=== PATIENT | male | born 1940 | race Caucasian/White ===

== ENCOUNTER 2020-08-22 18:23 | Observation (INO) | payer MEDICARE, BC ==
[~2020-08-22] VITALS: Ht 180.3 cm; Wt 93.5 kg
[~2020-08-22 18:23] MED LIST: ACET500 PO; ALBU3IS INH; ALBU90OI INH; ALLEGRA ALLERG180 MG PO; ALLERCLEAR10 MG PO; ALLO100 PO; ALPR.25 PO; ALPR.5; ALPR.5 PO; AMLO5 PO; AMOX500 PO; ASPI81CH PO; ASPI81EC; ASPI81EC PO; ATOR40TA; ATOR80 PO; AZEL137S NS; Allopurinol100 MG PO; Aspir 8181 MG PO; BENZ100A PO; BUDE6HFA INH; CENTRUM SILVER1 EAC2 PO; CHOL10002 PO; CIPR500 PO; CITA20 PO; CLARISPRAY9.9 M1; CO Q10100 MG PO; COQ1050 MG PO; Crestor40 MG PO; Cyclobenzaprine5 MG PO; DIAZ5 PO; ESOM20; FENO160 PO; FISH1000 PO; FLUT.05NI; GABA100 PO; GABA300 PO; HYDACE5 PO; HYDACE5325 PO; HYDCHL12.5 PO; IRBHYD300 PO; KETO10 PO; LEVO750 PO; LORPSEER12 PO; LOSA50 PO; LOSARTAN-HCTZ1 EAC6 PO; LOSHYD; LOSHYD PO; LOSHYD100; Lofibra160 MG PO; MAGCHL64ER PO; MAGNESIUM OXID500 MG PO; METO100 PO; METO100ER; METO100ER PO; METO25ER PO; METO50ER; METR500 PO; MONT10T PO; MULVITA PO; MULVITMIND PO; MULVITMINF; MULVITMINF PO; Micro-K10 MEQ PO; Mobic7.5 MG PO; NAPR500 PO; NASACORT10.8 ML; NIAC500ER; NITR.4SL SL; NITR.6SL SL; Nitrostat0.4 MG PO; OMEP20ER PO; OMEP40CA12 PO; OMEPRAZOLE MAGN20 MG PO; OXYACE5T PO; OXYACE7.5T PO; OXYC10TA19 PO; OXYC15ER PO; OXYC5 PO; PARO20; POLY500; POTA10T PO; POTCHL10ER PO; POTCHL20ER PO; POTCIT10; POTCIT10 PO; PRED20 PO; PROM25 PO; Percocet 5-3251 EACH PO; RANI150 PO; ROSU10TA; ROSU10TA PO; SPACER IH; SYMBICORT 160-4.6 GM INH; SYMBICORT INH; TAMS.4ER PO; TESTERONE; TESTOSTER; TESTOSTERONE; TESTOSTERONE CREAM; TRIAOIA; Testostero100 MG/1 M; UBID100 PO; VITAMIN D31000 UNI1 PO; Ventolin/Prove6.7 GM INH; Vesicare10 MG PO; Vibramycin100 MG PO; Vitamin D2000 UNIT PO; [UNRECOGNIZED DRUG - OTHER] PO
[2020-08-22 18:52] LABS: BASOPHILS ABSOLUTE AUTO 0.05 K/mm3 (0.00-0.23); BASOPHILS PERCENT AUTO 1 % (0-2); EOSINOPHILS ABSOLUTE AUTO 0.21 K/mm3 (0.00-0.68); EOSINOPHILS PERCENT AUTO 2 % (0-6); Hemoglobin 15.3 g/dL (13.5-17.5); IMMATURE GRAN ABSOLUTE AUTO 0.02 K/mm3 (0.00-0.10); IMMATURE GRAN PERCENT AUTO 0 % (0-1); LYMPHOCYTES PERCENT AUTO 19 % (21-46); MONOCYTES ABSOLUTE AUTO 0.75 K/mm3 (0.16-1.47); MONOCYTES PERCENT AUTO 8 % (4-13); Mean Corpuscular HGB 28.8 pg (26.0-34.0); Mean Corpuscular HGB Conc 33.3 g/dL (31.5-36.5); Mean Corpuscular Volume 87 fL (80-100); Mean Platelet Volume 10.4 fL (9.1-12.4); NEUTROPHILS PERCENT AUTO 70 % (41-73); Platelet Count 221 K/mm3 (150-400); RDW Coefficient Variation 14.9 % (11.7-14.2); RDW Standard Deviation 47.1 fL (35.1-46.3); Red Blood Cell Count 5.31 M/mm3 (4.30-5.90); White Blood Cell Count 9.33 K/mm3 (4.00-11.30)
[2020-08-22 19:12] LABS: Alanine Aminotransfer (ALT/SGP 39 U/L (12-78); Albumin, Blood 3.9 g/dL (3.4-5.0); Albumin/Globulin Ratio 1.1 (0.8-1.8); Alk Phos 67 U/L (50-136); Anion Gap 8 mmol/L (6-16); Aspartate Aminotrans (AST/SGOT 30 U/L (12-37); Bilirubin, Total 0.6 mg/dL (0.1-1.0); Blood Urea Nitrogen 28 mg/dL (8-24); Bun/Creatinine Ratio 25.9 (12.0-20.0); CO2, Blood 24 mmol/L (21-32); Calcium, Blood 9.1 mg/dL (8.5-10.1); Chloride, Blood 107 mmol/L (98-108); Creatinine, Blood 1.08 mg/dL (0.60-1.20); Globulin, Blood 3.5 g/dL (2.2-4.0); Glomerular Filtration Rate >60 (60-); Glucose, Blood 113 mg/dL (70-99); Potassium, Blood 3.7 mmol/L (3.5-5.5); Sodium, Blood 139 mmol/L (136-145); Total Protein, Blood 7.4 g/dL (6.4-8.2); Troponin I <0.015 ng/mL (0.000-0.040)
--- NOTE | 2020-08-23 18:39 | NUR ---
ADMIT: 08/22/21 DISCHARGE: DX: dizzy CC: [email or web address] ADMIT:01/08/20 DISCHARGE: 01/11/20 DX:Transient ischemic attack CC: YOAV CALL: Did not meet prior to discharge RESIDENCE: Home CAREGIVER: Nicolas Spence [phone], Child, Nicolas Spence [phone], Child, DX: COPD, CAD, Chronic Kidney disase, see list DME: oxygen for AIDE, no cpap CCM: No record HOME HEALTH: No record Summary: 08/22/19 obs 08/23/[address] Hare ETA discharge Sunday post stress test and angiogram if needed. Will meet [facility] Sunday to discuss discharge planning. cp Cardiolite stress test would be the next appropriate step for his evaluation. Troponin neg x2. Although the patient would like to proceed with an angiogram instead, he did agree to a stress test tomorrow morning. If there is an abnormality he will then get an angiogram and if it is normal he will follow-up with Debra Alvarado as scheduled next [id number] without symptoms.
--- NOTE | 2020-08-23 18:49 | NUR ---
08/23/[address] Julio, patient quite and agreeable. She is addressing his continued need of restrainsts, Discussed his baseline mentation fluctuated, most phillip very slow to answer questions, or does not recognize where he is, other times recongnizes family. Was mostly bedbound since he was admitted, not wanting to work with PT OT. Last week started getting up out of bed, not directable. Still waiting for Medicaid approval for placement. Was reviewed by Harpal Jernigan. I will follow up with Kayli Hernández to identify if received chart notes and date finacials are expected to be completed. cp
--- NOTE | 2020-08-23 19:06 | NUR ---
SHIFT SUMMARY PT ARRIVED FROM ER AROUND 1030AM. HAD ECHO UPON ARRIVAL, GIRLFRIEND AT BEDSIDE. INDEP IN ROOM, CONTINENT. 3L OXYGEN PRN FOR WHEN HE SLEEPS, THIS IS HIS HOME REGIMEN FOR HIS CPAP, HE DECLINES CPAP. TELE SHOWING NSR WITH FIRST DEGREE BLOCK AND BBB, DR MILLS SHOWN THE STRIP THAT WAS FAXED OVER. TO HAVE STRESS TEST TOMORROW, NPO FOUR HOURS PRIOR. CALL LIGHT IN REACH, GIVING REPORT TO NIGHT NURSE
--- NOTE | 2020-08-24 00:07 | NUR ---
08/24/20 0005 PT AWAKENED FOR VITALS AND REMINDED HIM OF BEING NPO EXCEPT FOR WATER AND MEDS. DENIES ANY S/S OR DISCOMFORT. INFORMATION TECHNOLOGY AUDIT MANAGER NOTICED SOME MILD QRS CHANGES ABOUT 2325. WILL CONTINUE TO MONITOR.
--- NOTE | 2020-08-24 04:48 | NUR ---
08/24/20 0440 LAB WOKE PT FOR LABWORK. DENIES ANY S/S OR DISCOMFORT. UP TO THE BR FOR VOIDINGS. ONLY ON SIPS OF WATER AND MEDS SINCE MIDNIGHT. HEART MONITOR STABLE AT SR AT 70 WITH BBB "ON AND OFF" PER GEOGRAPHY DEPARTMENT CHAIR. ALEXANDRA.
[2020-08-24 05:08] LABS: BASOPHILS ABSOLUTE AUTO 0.04 K/mm3 (0.00-0.23); BASOPHILS PERCENT AUTO 1 % (0-2); EOSINOPHILS ABSOLUTE AUTO 0.21 K/mm3 (0.00-0.68); EOSINOPHILS PERCENT AUTO 4 % (0-6); Hematocrit 42.6 % (37.0-53.0); Hemoglobin 14.1 g/dL (13.5-17.5); IMMATURE GRAN ABSOLUTE AUTO 0.02 K/mm3 (0.00-0.10); IMMATURE GRAN PERCENT AUTO 0 % (0-1); LYMPHOCYTES ABSOLUTE AUTO 1.42 K/mm3 (0.84-5.20); LYMPHOCYTES PERCENT AUTO 25 % (21-46); MONOCYTES ABSOLUTE AUTO 0.63 K/mm3 (0.16-1.47); MONOCYTES PERCENT AUTO 11 % (4-13); Mean Corpuscular HGB 29.4 pg (26.0-34.0); Mean Corpuscular HGB Conc 33.1 g/dL (31.5-36.5); Mean Corpuscular Volume 89 fL (80-100); Mean Platelet Volume 10.3 fL (9.1-12.4); NEUTROPHILS ABSOLUTE AUTO 3.41 K/mm3 (1.96-9.15); NEUTROPHILS PERCENT AUTO 60 % (41-73); Platelet Count 186 K/mm3 (150-400); RDW Standard Deviation 48.1 fL (35.1-46.3); White Blood Cell Count 5.73 K/mm3 (4.00-11.30)
[2020-08-24 05:35] LABS: Alanine Aminotransfer (ALT/SGP 34 U/L (12-78); Albumin, Blood 3.2 g/dL (3.4-5.0); Alk Phos 65 U/L (50-136); Anion Gap 7 mmol/L (6-16); Aspartate Aminotrans (AST/SGOT 20 U/L (12-37); Bilirubin, Total 0.7 mg/dL (0.1-1.0); Blood Urea Nitrogen 23 mg/dL (8-24); CO2, Blood 27 mmol/L (21-32); Chloride, Blood 108 mmol/L (98-108); Creatinine, Blood 1.15 mg/dL (0.60-1.20); Globulin, Blood 3.1 g/dL (2.2-4.0); Glomerular Filtration Rate >60 (60-); Glucose, Blood 110 mg/dL (70-99); Magnesium, Blood 1.6 mg/dL (1.6-2.4); Potassium, Blood 3.9 mmol/L (3.5-5.5); Sodium, Blood 142 mmol/L (136-145); Total Protein, Blood 6.3 g/dL (6.4-8.2)
--- NOTE | 2020-08-24 08:54 | NUR ---
PATIENT GAVE PERMISSION FOR DEVELOPER ANALYST DWAYNE TO GIVE CARE.
--- NOTE | 2020-08-24 18:33 | NUR ---
SHIFT SUMMARY PT UPSET AT BEGINNING OF DAY DUE TO VISITING HOURS LIMITATIONS. REPORTED GIRLFRIEND HELPS WITH HIS ANXIETY RELATED TO HIS CARDIAC CONDITION. AFTER PT SPOKE FURTHER WITH S.O. PT MUCH CALMER AND WAS ABLE TO CALM HIMSELF DOWN. HAS BEEN PLEASANT AND COOPERATIVE THROUGH THE DAY. WALKED IN THE HALLWAYS TWICE. DENIES CHEST PAIN OR FEELING DIZZY OR LIGHTHEADED. TOPROL PUT ON HOLD TIL STRESS TEST COMPLETED. PLANS FOR TREADMILL PORTION OF STRESS TEST TO BE COMPLETED TOMORROW WITH [employer] LEAD TIME OF APPROX 1230.
--- NOTE | 2020-08-24 20:16 | NUR ---
1950 PT LYING IN BED, DENIES ANY DISCOMFORT OR NEED FOR ANYTHING AT THIS TIME. TELE IS SB, BBB, 1ST DEGREE BLOCK AT 56 PER TELE STOCK SAW OPERATOR. NO OTHER APPARENT SIGNS OF DISTRESS. CALL LIGHT IS IN REACH.
--- NOTE | 2020-08-25 02:30 | NUR ---
08/24/20 2200 PT LYING IN BED, AWAKE, WATCHING TV, NO APPARENT SIGNS OF DISTRESS. CALL LIGHT IS IN REACH.
--- NOTE | 2020-08-25 02:31 | NUR ---
0000 PT LYING IN BED, EYES CLOSED, APPEARS TO BE RESTING. BREATHING IS EVEN, UNLABORED. NO APPARENT SIGNS OF DISTRESS. CALL LIGHT IS IN REACH.
--- NOTE | 2020-08-25 02:31 | NUR ---
PT LYING IN BED, EYES CLOSED, APPEARS TO BE RESTING. BREATHING IS EVEN, UNLABORED. NO APPARENT SIGNS OF DISTRESS. CALL LIGHT IS IN REACH.
--- NOTE | 2020-08-25 04:17 | NUR ---
PT LYING IN BED, EYES CLOSED, APPEARS TO BE RESTING. BREATHING IS EVEN, UNLABORED. NO APPARENT SIGNS OF DISTRESS. CALL LIGHT IS IN REACH.
--- NOTE | 2020-08-25 04:17 | NUR ---
PT IS AAO X 4, ON RA, TELE SB W/BBB AND 1ST DEGREE BLOCK. DENIED ANY DISCOMFORT FOR THIS SHIFT. WEARS 3L NC O2 AT NOC.
--- NOTE | 2020-08-25 06:05 | NUR ---
PT SITTING ON EDGE OF BED, VS BEING DONE. PT DENIES NEED FOR ANYTHING AT THIS TIME. NO APPARENT SIGNS OF DISTRESS. CALL LIGHT IS IN REACH. NO OTHER CHANGES THIS SHIFT.
--- NOTE | 2020-08-25 09:00 | NUR ---
PT WITH EPISODE OF FEELING DIZZY AND LIGHTHEADED JUST AFTER EATING HIS BREAKFAST. RETURNED FROM TREADMILL STRESS TEST ABOUT 10 MINUTES PRIOR TO EPISODE AND SAT DOWN TO EAT. VSS. TELE REPORTED HEART RATE JUMPED TO 130'S JUST PRIOR TO EPISODE OCCURING AND IT TOOK ABOUT 15 MINUTES TO RESOLVE.
--- NOTE | 2020-08-25 15:05 | NUR ---
DISCHARGE INSTRUCTIONS COMPLETED AND DISCUSSED WITH PT EXPRESSING UNDERSTANDING. NO NEW SCRIPTS SO NOT FAXED TO PHARMACY. TO [facility] VIA W/C WITH S.O.
== END 2020-08-25 14:50 | disposition home or self-care (01) ==
LOC: ER 18:23 → ERHOLD 18:24 → MEDS 18:24 → ERHOLD 18:24 → MEDS 08-23 11:31
PROVIDERS: Family Medicine; Physician Assistant; ADMIT Internal Medicine
DX: R42 Dizziness and giddiness (principal); I08.0 Rheumatic disorders of both mitral and aortic valves; J44.9 Chronic obstructive pulmonary disease, unspecified; G47.33 Obstructive sleep apnea (adult) (pediatric); I13.0 Hypertensive heart and chronic kidney disease with heart failure and stage 1 through stage 4 chronic kidney disease, or unspecified chronic kidney disease; I50.32 Chronic diastolic (congestive) heart failure; E11.22 Type 2 diabetes mellitus with diabetic chronic kidney disease; N18.30 Chronic kidney disease, stage 3 unspecified; I25.10 Atherosclerotic heart disease of native coronary artery without angina pectoris; R94.31 Abnormal electrocardiogram [ECG] [EKG]; I77.819 Aortic ectasia, unspecified site; I25.2 Old myocardial infarction; Z88.1 Allergy status to other antibiotic agents; Z88.8 Allergy status to other drugs, medicaments and biological substances; Z79.82 Long term (current) use of aspirin; Z86.73 Personal history of transient ischemic attack (TIA), and cerebral infarction without residual deficits; Z95.1 Presence of aortocoronary bypass graft; Z87.891 Personal history of nicotine dependence; Z99.81 Dependence on supplemental oxygen
CPT/HCPCS: 36415; 71046; 78452; 80053; 83735; 84484; 85025; 93005; 93010; 93017; 93306; 94760; 96372; 99285-25; A9270; A9500; G0378; J1650

== ENCOUNTER → 2024-05-05 | Outpatient (CLI) | payer MEDICARE, BC | END | disposition home or self-care (01) | LOC: LAB 14:59 → LAB SHORT 14:59 | DX: C44.229 Squamous cell carcinoma of skin of left ear and external auricular canal (principal) | CPT/HCPCS: 88305 ==

== ENCOUNTER 2025-06-09 09:43 | Emergency (ER) | payer MEDICARE, BC ==
[~2025-06-09] VITALS: Ht 180.3 cm; Wt 95.7 kg
[2025-06-09 10:22] LABS: BASOPHILS ABSOLUTE AUTO 0.03 K/mm3 (0.00-0.23); BASOPHILS PERCENT AUTO 1 % (0-2); EOSINOPHILS ABSOLUTE AUTO 0.15 K/mm3 (0.00-0.68); EOSINOPHILS PERCENT AUTO 3 % (0-6); Hematocrit 38.5 % (37.0-53.0); Hemoglobin 13.0 g/dL (13.5-17.5); IMMATURE GRAN ABSOLUTE AUTO 0.03 K/mm3 (0.00-0.10); IMMATURE GRAN PERCENT AUTO 1 % (0-1); LYMPHOCYTES ABSOLUTE AUTO 1.05 K/mm3 (0.84-5.20); LYMPHOCYTES PERCENT AUTO 18 % (21-46); MONOCYTES ABSOLUTE AUTO 0.62 K/mm3 (0.16-1.47); MONOCYTES PERCENT AUTO 10 % (4-13); Mean Corpuscular HGB Conc 33.8 g/dL (31.5-36.5); Mean Corpuscular Volume 93 fL (80-100); NEUTROPHILS ABSOLUTE AUTO 4.08 K/mm3 (1.96-9.15); NEUTROPHILS PERCENT AUTO 69 % (41-73); NRBC ABSOLUTE 0.00 K/mm3 (0.00-0.02); NRBC Auto 0.0 /100 WBC (0.0-0.2); Platelet Count 144 K/mm3 (150-400); RDW Coefficient Variation 14.0 % (11.7-14.2); RDW Standard Deviation 47.6 fL (35.1-46.3)
[2025-06-09] MEDS ORDERED: CALCIUM GLUC IN NACL, ISO-OSM 50 ML IV ONE (10:35)
[2025-06-09 10:44] LABS: Alanine Aminotransfer (ALT/SGP 30.0 U/L (12-78); Albumin, Blood 2.9 g/dL (3.4-5.0); Albumin/Globulin Ratio 0.8 (0.8-1.8); Anion Gap 8.0 mmol/L (3-11); Aspartate Aminotrans (AST/SGOT 21.0 U/L (12-37); Bilirubin, Total 0.7 mg/dL (0.1-1.0); Blood Urea Nitrogen 17.0 mg/dL (8-24); CO2, Blood 27.0 mmol/L (21-32); Calcium, Blood 8.5 mg/dL (8.5-10.1); Chloride, Blood 109.0 mmol/L (98-108); Creatinine, Blood 1.01 mg/dL (0.60-1.20); Globulin, Blood 3.6 g/dL (2.2-4.0); Glucose, Blood 139.0 mg/dL (70-99); Magnesium, Blood 2.0 mg/dL (1.6-2.4); Potassium, Blood 4.1 mmol/L (3.5-5.5); Sodium, Blood 140.0 mmol/L (136-145); Total Protein, Blood 6.5 g/dL (6.4-8.2)
[2025-06-09 17:08] VITALS: BP 135/67
== END 2025-06-09 17:10 | disposition short-term general hospital (02) ==
LOC: ER 09:43
PROVIDERS: Student in an Organized Health Care Education/Training Program
DX: I48.91 Unspecified atrial fibrillation (principal); R55 Syncope and collapse; E11.22 Type 2 diabetes mellitus with diabetic chronic kidney disease; I12.9 Hypertensive chronic kidney disease with stage 1 through stage 4 chronic kidney disease, or unspecified chronic kidney disease; N18.30 Chronic kidney disease, stage 3 unspecified; I25.10 Atherosclerotic heart disease of native coronary artery without angina pectoris; I25.2 Old myocardial infarction; J44.9 Chronic obstructive pulmonary disease, unspecified; G47.33 Obstructive sleep apnea (adult) (pediatric); K21.9 Gastro-esophageal reflux disease without esophagitis; Z95.3 Presence of xenogenic heart valve; Z87.442 Personal history of urinary calculi; Z95.1 Presence of aortocoronary bypass graft; Z86.73 Personal history of transient ischemic attack (TIA), and cerebral infarction without residual deficits; Z88.1 Allergy status to other antibiotic agents; Z88.5 Allergy status to narcotic agent; Z88.8 Allergy status to other drugs, medicaments and biological substances; Z79.82 Long term (current) use of aspirin; Z79.899 Other long term (current) drug therapy; Z87.891 Personal history of nicotine dependence
CPT/HCPCS: 71046; 80053; 83735; 83880; 84484; 85025; 93005; 93010; 96374; 99285-25; A9270; J0612